=== PATIENT | female | born 1960 | race Caucasian/White ===

== ENCOUNTER → 2016-09-29 | Outpatient (CLI) | payer OTHER ==
[~2016-09-29] MED LIST: CPR500 PO; CRAN1TAB; ERGO1CAP41 PO; ESOM40GR PO; GLIM2TAB2 PO; IBUP-103 PO; LPR25 PO; METF500T PO; METH4PAK PO; MULTTAB5; RANI300T2 PO
[2016-09-29 19:20] LABS: URINE APPEARANCE TURBID (CLEAR); URINE BILIRUBIN NEG (NEG); URINE COLOR YELLOW; URINE EPITHELIAL CELL AUTO >30 /lpf (0-5); URINE NITRITE NEG (NEG); UROBILINOGEN NEG (NEG)
[2016-09-29 19:32] LABS: MANUAL MICROSCOPIC REQUIRED? NO; REVIEW REQ? YES
== END | disposition home or self-care (01) ==
LOC: C.LABSPEC 16:59
PROVIDERS: ATTEND Family Medicine
DX: R30.0 Dysuria (principal); R10.9 Unspecified abdominal pain

== ENCOUNTER → 2016-10-05 | Outpatient (CLI) | payer OTHER ==
--- NOTE | 2016-10-05 12:54 | DIAGNOSTIC IMAGING REPORT ---
RENAL ULTRASOUND HISTORY: R30.0 [id number] COMPARISON: Abdomen and pelvis CT 07/20/2014. FINDINGS: Right kidney: 13.2 cm. No hydronephrosis. Normal corticomedullary differentiation and cortical thickness. There is a 9 mm cyst at the interpolar region. There is a duplicated collecting system. Left kidney: 10.5 cm. No hydronephrosis. Normal corticomedullary differentiation and cortical thickness. There is 9 mm stone within the lower pole of the left kidney. Bladder: No bladder wall thickening. Hepatic steatosis. IMPRESSION: 1. No hydronephrosis. 2. Left-sided nephrolithiasis. No right renal calculi. 3. Duplicated right renal collecting system. 4. Hepatic steatosis. Electronically signed by: Lencho Modi M.D. 10/05/2016 12:52 PM Dictated Date/Time: 10/05/2016 12:47 PM
== END | disposition home or self-care (01) ==
LOC: C.ULTR 11:50
PROVIDERS: ATTEND Family Medicine
DX: R30.0 Dysuria (principal); R31.9 Hematuria, unspecified; N20.0 Calculus of kidney; K76.0 Fatty (change of) liver, not elsewhere classified

== ENCOUNTER → 2016-10-20 | Outpatient (CLI) | payer OTHER ==
[2016-10-20 13:23] LABS: ESTIMATED AVERAGE GLUCOSE 180 mg/dl; HA1C FLAG Normal (Normal)
[2016-10-20 13:52] LABS: CHOLESTEROL/HDL RATIO 3.5
[2016-10-20 14:23] LABS: BLOOD UREA NITROGEN 28 mg/dl (7-18); BUN/CREATININE RATIO 40.1 (10-20); CALCIUM 9.5 mg/dl (8.5-10.1); CARBON DIOXIDE 24 mmol/L (21-32); CHLORIDE 104 mmol/L (98-107); CREATININE 0.71 mg/dl (0.60-1.20); GLUCOSE 191 mg/dl (70-99); SODIUM 139 mmol/L (136-145)
== END | disposition home or self-care (01) ==
LOC: C.LABPBG 09:56
PROVIDERS: ATTEND Family Medicine
DX: Z11.59 Encounter for screening for other viral diseases (principal); E11.65 Type 2 diabetes mellitus with hyperglycemia

== ENCOUNTER 2016-12-07 11:06 | Emergency (ER) | payer OTHER ==
[~2016-12-07] VITALS: Ht 167.6 cm; Wt 99.4 kg
[~2016-12-07 11:06] MED LIST changes: -CRAN1TAB; -GLIM2TAB2 PO; -MULTTAB5
[2016-12-07 11:12] VITALS: TEMP 37.4; Ht 167.6 cm; Wt 99.4 kg
[2016-12-07 12:34] LABS: BASO % 0.4 %; BASO ABS # 0.04 K/uL (0-0.2); COMPLETE YES; EOS % 1.4 %; HEMATOCRIT 43.9 % (37-47); IG% 0.2 %; LYMPH ABS # 2.29 K/uL (1.2-3.4); MEAN CELL VOLUME 88.7 fL (80-100); MEAN CORPUSCULAR HEMOGLOBIN 29.7 pg (25-34); MEAN CORPUSCULAR HGB CONC 33.5 g/dl (32-36); MEAN PLATELET VOLUME 11.1 fL (7.4-10.4); MONO % 9.1 %; NEUT % 65.9 %; PLATELET COUNT 323 K/uL (130-400); RED BLOOD COUNT 4.95 M/uL (4.2-5.4); WHITE BLOOD COUNT 9.95 K/uL (4.8-10.8)
[2016-12-07] MEDS ORDERED: GLIM2TAB2 PO (12:57)
[2016-12-07] MEDS ORDERED: MULTTAB5 (12:57)
[2016-12-07] MEDS ORDERED: CRAN1TAB (12:57)
[2016-12-07 13:00] LABS: ALT/SGPT 26 U/L (12-78); AST/SGOT 11 U/L (15-37); BLOOD UREA NITROGEN 21 mg/dl (7-18); BUN/CREATININE RATIO 25.7 (10-20); CALCIUM 9.3 mg/dl (8.5-10.1); CARBON DIOXIDE 26 mmol/L (21-32); CHLORIDE 106 mmol/L (98-107); GLUCOSE 218 mg/dl (70-99); POTASSIUM 3.9 mmol/L (3.5-5.1); SODIUM 141 mmol/L (136-145)
[2016-12-07 13:02] LABS: ALB/GLOB RATIO 1.1 (0.9-2); ALKALINE PHOSPHATASE 111 U/L (45-117)
--- NOTE | 2016-12-07 13:40 | DIAGNOSTIC IMAGING REPORT ---
CHEST ONE VIEW PORTABLE CLINICAL HISTORY: Chest pain. COMPARISON STUDY: No previous studies for comparison. FINDINGS: Lung volumes are normal. There is no pneumothorax or pleural effusion. Cardiac size is normal. Mediastinal contours are normal. There is no evidence of pulmonary edema. IMPRESSION: No acute cardiopulmonary findings. Electronically signed by: Geo Walsh M.D. 12/07/2016 1:39 PM Dictated Date/Time: 12/07/2016 1:39 PM
--- NOTE | 2016-12-07 15:40 | EMERGENCY ROOM VISIT NOTE ---
ED Visit Note First contact with patient: 12:20 I have personally seen and evaluated the patient with the physician staff assistant. I agree with the diagnostic/management decisions and have personally been involved in these decisions and agree with the diagnosis.
[2016-12-07 15:43] VITALS: BP 124/88; PULSE 78; O2SAT 95
--- NOTE | 2016-12-07 17:23 | EMERGENCY ROOM VISIT NOTE ---
History First contact with patient: 12:20 Chief Complaint: ILLNESS Stated Complaint: CHEST PAIN History of Present Illness The patient is a 56 year old female who presents to the Emergency Room with complaints of abdominal pain, chest pain, shortness of breath and discomfort in bilateral shoulders. The patient reports that she has had worsening symptoms over the past week with shortness of breath over the past 3 days. The patient believes that some of her symptoms could be secondary to a diabetic medication that her family doctor prescribed. She does not know the name of it, but believes it is similar to glipizide. She continues with her metformin. The patient denies any recent upper respiratory infections. She denies any cough, headache, neck pain, fevers or chills. The patient denies any history of heart disease or lung disease. The patient does have a significant history of pelvic infection approximately 5 years ago secondary to contact dermatitis. She required extensive debridement at that time. She denies history of gallbladder disease, hepatitis or pancreatitis. The patient currently rates her discomfort a 5 out of 10. Review of Systems HEENT: Denies dizziness, visual problems, hearing loss, tinnitus. Denies difficulty swallowing or oral lesions. PULMONARY: Denies cough, sputum production or hemoptysis. CARDIOVASCULAR: Denies palpitations, dyspnea on exertion, orthopnea or peripheral edema. Otherwise see history of present illness. GASTROINTESTINAL: Denies diarrhea, constipation, nausea or vomiting. GENITOURINARY: Denies dysuria, frequency, urgency or nocturia. NEUROLOGIC: Denies history of epilepsy, CVA, TIA or chronic headaches. MUSCULOSKELETAL: Denies history of joint tenderness/swelling. SKIN: Denies rashes or lesions. PSYCHIATRIC: Denies history of depression or mental illness. ENDOCRINE: History of diabetes. Denies thyroid disorders. Past Medical/Surgical History Medical Problems: (1) Calculus Of Kidney (2) Diab Liliya Wo Compl, Type Ii Or Unspec Type, Uncontrolled (3) Diverticulosis Colon (W/O Ment Of Hemorrhage) (4) Septicemia Nos Family History FH: diabetes mellitus FH: heart disease FH: hypertension FH: kidney disease Social History Smoking Status: Former Smoker Alcohol Use: none Marital Status: Housing Status: lives with family Occupation Status: unemployed Current/Historical Medications Scheduled Glimepiride (Glimepiride), 1 TAB PO DAILY Ibuprofen Tab (Advil), 200-600 MG PO Q4-6HR PRN Metformin Hcl (Glucophage), 500 MG PO DAILY Metoprolol Tartrate (Lopressor), 25 MG PO BID Miscellaneous Medications Cranberry (Vaccinium Macrocarp (Cranberry) Multiple Vitamins W/ Minerals (Centrum) Allergies Coded Allergies: Sulfa Drugs (Verified Allergy, Severe, hives, 12/07/16) Physical Exam Vital Signs Date Time Temp Pulse Resp B/P Pulse Ox O2 Delivery O2 Flow Rate FiO2 12/07/16 15:43 78 18 124/88 95 Room Air 12/07/16 14:13 132/74 12/07/16 13:05 128/68 12/07/16 11:12 37.4 86 18 135/83 94 Room Air Physical Exam CONSTITUTIONAL: Obese female, alert and oriented X 3 with positive affect. She does not appear in any acute distress. HEENT: Normocephalic, atraumatic. Pupils equal, round and reactive. No scleral icterus or conjunctival injection/pallor. NECK: Full active range of motion without discomfort. No JVD or carotid bruits. RESPIRATORY: Clear to auscultation bilaterally with no wheezing, crackles, rhonchi or stridor. CARDIOVASCULAR: Regular rate and rhythm with no murmurs, rubs or gallops. GASTROINTESTINAL: Bowel sounds present in all quadrants. Patient has mild epigastric and right upper quadrant tenderness to palpation. Negative Rodriguez sign. No abdominal rigidity, guarding or rebound. MUSCULOSKELETAL: Full range of motion of all joints without discomfort. INTEGUMENTARY: No rash or other significant dermatologic conditions noted. HEMATOLOGIC: No ecchymosis or petechiae. NEUROLOGIC: No focal neurologic deficits noted. Medical Decision & Procedures ER Provider Diagnostic Interpretation: My interpretation of an ECG shows a normal sinus rhythm of [address] elevation. A left anterior fascicular block is noted. My interpretation of a portable chest x-ray does not show any consolidations or pneumothorax. Radiologist report is as follows: CHEST ONE VIEW PORTABLE CLINICAL HISTORY: Chest pain. COMPARISON STUDY: No previous studies for comparison. FINDINGS: Lung volumes are normal. There is no pneumothorax or pleural effusion. Cardiac size is normal. Mediastinal contours are normal. There is no evidence of pulmonary edema. IMPRESSION: No acute cardiopulmonary findings. Laboratory Results 12/07/16 12:20 Red Blood Count 4.95, Mean Corpuscular Volume 88.7, Mean Corpuscular Hemoglobin 29.7, Mean Corpuscular Hemoglobin Concent 33.5, Mean Platelet Volume 11.1, Neutrophils (%) (Auto) 65.9, Lymphocytes (%) (Auto) 23.0, Monocytes (%) (Auto) 9.1, Eosinophils (%) (Auto) 1.4, Basophils (%) (Auto) 0.4, Neutrophils # (Auto) 6.55, Lymphocytes # (Auto) 2.29, Monocytes # (Auto) 0.91, Eosinophils # (Auto) 0.14, Basophils # (Auto) 0.04 12/07/16 12:20 Test 12/07/16 12:19 12/07/16 12:20 Bedside Glucose 199 mg/dl (70-90) White Blood Count 9.95 K/uL (4.8-10.8) Red Blood Count 4.95 M/uL (4.2-5.4) Hemoglobin 14.7 g/dL (12.0-16.0) Hematocrit 43.9 % (37-47) Mean Corpuscular Volume 88.7 fL (80-100) Mean Corpuscular Hemoglobin 29.7 pg (25-34) Mean Corpuscular Hemoglobin Concent 33.5 g/dl (32-36) Platelet Count 323 K/uL (130-400) Mean Platelet Volume 11.1 fL (7.4-10.4) Neutrophils (%) (Auto) 65.9 % Lymphocytes (%) (Auto) 23.0 % Monocytes (%) (Auto) 9.1 % Eosinophils (%) (Auto) 1.4 % Basophils (%) (Auto) 0.4 % Neutrophils # (Auto) 6.55 K/uL (1.4-6.5) Lymphocytes # (Auto) 2.29 K/uL (1.2-3.4) Monocytes # (Auto) 0.91 K/uL (0.11-0.59) Eosinophils # (Auto) 0.14 K/uL (0-0.5) Basophils # (Auto) 0.04 K/uL (0-0.2) RDW Standard Deviation 46.0 fL (36.4-46.3) RDW Coefficient of Variation 14.2 % (11.5-14.5) Immature Granulocyte % (Auto) 0.2 % Immature Granulocyte # (Auto) 0.02 K/uL (0.00-0.02) D-Dimer 350 ug/L FEU (0-500) Anion Gap 9.0 mmol/L (3-11) Est Creatinine Clear Calc Drug Dose 91.1 ml/min Estimated GFR () 94.2 Estimated GFR (Non- 81.3 BUN/Creatinine Ratio 25.7 (10-20) Calcium Level 9.3 mg/dl (8.5-10.1) Total Bilirubin 0.3 mg/dl (0.2-1) Direct Bilirubin < 0.1 mg/dl (0-0.2) Aspartate Amino Transf (AST/SGOT) 11 U/L (15-37) Alanine Aminotransferase (ALT/SGPT) 26 U/L (12-78) Alkaline Phosphatase 111 U/L (45-117) Total Creatine Kinase 37 U/L (26-192) Troponin I < 0.015 ng/ml (0-0.045) Total Protein 7.4 gm/dl (6.4-8.2) Albumin 3.8 gm/dl (3.4-5.0) Globulin 3.6 gm/dl (2.5-4.0) Albumin/Globulin Ratio 1.1 (0.9-2) Lipase 155 U/L (73-393) The above labs were reviewed. Random glucose is 218. BUN 21 with a normal creatinine of 0.8. CBC and LFTs are normal. Troponin and d-dimer are normal. ED Course Patient history and physical exam were performed. Nurse's notes were reviewed. Vital signs were reviewed and were normal. O2 saturation was 94% on room air in triage, but was 97% on my initial exam. IV access was established and labs were drawn. The patient refused any analgesics. ECG and chest x-ray were normal. Review of labs shows a normal d-dimer and troponin. Remaining labs are also normal. The case was further discussed with Dr. Vásquez, ED attending physician, who evaluated the patient and does not feel that any additional workup is warranted , and suggested outpatient follow-up with PCP. The patient was advised of her normal findings. She was encouraged to call her family doctor's office for further reevaluation. I do not know if her current diabetes medication is causing the symptoms, although I don't think it's likely. She was instructed to return for any progressively worsening symptoms. The patient was happy with plan of care, and denied any significant symptoms at the time of discharge. Medical Decision She presents to the emergency department with multiple complaints that she attributes to possible allergic reaction to a new diabetic medication that she started. Her workup today is not suggestive of myocardial infarction, pneumonia , pneumothorax or pulmonary embolus. The patient is afebrile and has no leukocytosis. At this point, I feel that the patient is stable for outpatient management. She was given instructions to return for any worsening symptoms. Impression Primary Impression: Shortness of breath Additional Impressions: Chest pain, non-cardiac Diabetes Departure Information Referrals Antoinette Farmer DO (PCP) Patient Instructions My [facility] Problem Qualifiers
== END 2016-12-07 15:56 | disposition home or self-care (01) ==
LOC: C.EDB 11:08 → C.EDC 15:56
DX: R06.02 Shortness of breath (principal); R07.89 Other chest pain; E11.9 Type 2 diabetes mellitus without complications; R10.9 Unspecified abdominal pain; Z87.442 Personal history of urinary calculi; Z79.899 Other long term (current) drug therapy; E66.9 Obesity, unspecified; Z68.35 Body mass index [BMI] 35.0-35.9, adult; Z83.3 Family history of diabetes mellitus; Z82.49 Family history of ischemic heart disease and other diseases of the circulatory system; Z87.891 Personal history of nicotine dependence

== ENCOUNTER → 2017-01-01 | Outpatient (CLI) | payer OTHER ==
[~2017-01-01] MED LIST changes: -CPR500 PO; +CRAN1TAB; -ERGO1CAP41 PO; -ESOM40GR PO; +GLIM2TAB2 PO; -METH4PAK PO; +MULTTAB5; -RANI300T2 PO
[2017-01-01 18:11] LABS: URINE APPEARANCE CLEAR (CLEAR); URINE BILIRUBIN NEG (NEG); URINE COLOR YELLOW; URINE NITRITE NEG (NEG); URINE PH 5.5 (4.5-7.5); UROBILINOGEN NEG (NEG)
[2017-01-01 18:19] LABS: MANUAL MICROSCOPIC REQUIRED? NO; REVIEW REQ? NO
== END | disposition home or self-care (01) ==
LOC: C.LABPBG 14:39
PROVIDERS: ATTEND Family Medicine
DX: R30.0 Dysuria (principal)

== ENCOUNTER → 2017-03-07 | Outpatient (CLI) | payer OTHER ==
[2017-03-07 13:35] LABS: BLOOD UREA NITROGEN 29 mg/dl (7-18); BUN/CREATININE RATIO 40.6 (10-20); CARBON DIOXIDE 24 mmol/L (21-32); CHLORIDE 109 mmol/L (98-107); CREATININE 0.71 mg/dl (0.60-1.20); GLUCOSE 227 mg/dl (70-99); POTASSIUM 4.3 mmol/L (3.5-5.1); SODIUM 142 mmol/L (136-145)
[2017-03-07 13:46] LABS: CHOLESTEROL 210 mg/dl (0-200); HDL CHOLESTEROL 53 mg/dl; LDL CHOLESTEROL CALCULATED 129 mg/dl; TRIGLYCERIDES 141 mg/dl (0-150); VERY LOW DENSITY LIPOPROT CALC 28 mg/dl
[2017-03-07 14:38] LABS: ESTIMATED AVERAGE GLUCOSE 232 mg/dl; HA1C FLAG Normal (Normal)
[2017-03-07 17:49] LABS: URINE APPEARANCE TURBID (CLEAR); URINE BILIRUBIN NEG (NEG); URINE COLOR YELLOW; URINE EPITHELIAL CELL AUTO 20-30 /lpf (0-5); URINE NITRITE NEG (NEG); URINE SPECIFIC GRAVITY 1.024 (1.000-1.030); UROBILINOGEN NEG (NEG); ZZUR CULT IF INDIC CLEAN CATCH NO
[2017-03-07 17:51] LABS: MANUAL MICROSCOPIC REQUIRED? NO; REVIEW REQ? NO
[2017-03-07 18:23] LABS: RATIO 13.2 mcg/mg (0-30.0)
== END | disposition home or self-care (01) ==
LOC: C.LABPBG 09:55
PROVIDERS: ATTEND Nurse Practitioner Family
DX: I10 Essential (primary) hypertension (principal); E78.5 Hyperlipidemia, unspecified; E11.65 Type 2 diabetes mellitus with hyperglycemia; R35.0 Frequency of micturition

== ENCOUNTER → 2017-04-18 | Outpatient (CLI) | payer OTHER ==
[2017-04-18 12:28] LABS: BLOOD UREA NITROGEN 21 mg/dl (7-18); BUN/CREATININE RATIO 34.8 (10-20); CALCIUM 9.2 mg/dl (8.5-10.1); CARBON DIOXIDE 26 mmol/L (21-32); CHLORIDE 109 mmol/L (98-107); CREATININE 0.61 mg/dl (0.60-1.20); GLUCOSE 186 mg/dl (70-99); POTASSIUM 4.2 mmol/L (3.5-5.1); SODIUM 141 mmol/L (136-145)
[2017-04-18 12:49] LABS: ESTIMATED AVERAGE GLUCOSE 200 mg/dl; HA1C FLAG Normal (Normal)
== END | disposition home or self-care (01) ==
LOC: C.LABPBG 10:33
PROVIDERS: ATTEND Nurse Practitioner Family
DX: E11.65 Type 2 diabetes mellitus with hyperglycemia (principal)

== ENCOUNTER → 2017-11-16 | Outpatient (CLI) | payer OTHER ==
[2017-11-16 13:05] LABS: HEMOGLOBIN A1C 8.1 % (4.5-5.6)
[2017-11-16 17:14] LABS: BLOOD UREA NITROGEN 22 mg/dl (7-18); CALCIUM 9.1 mg/dl (8.5-10.1); CARBON DIOXIDE 29 mmol/L (21-32); CREATININE 0.63 mg/dl (0.60-1.20); GLUCOSE 169 mg/dl (70-99); POTASSIUM 3.9 mmol/L (3.5-5.1); SODIUM 138 mmol/L (136-145)
== END | disposition home or self-care (01) ==
LOC: C.LABPBG 10:25
PROVIDERS: ATTEND Family Medicine
DX: R39.89 Other symptoms and signs involving the genitourinary system (principal); E11.65 Type 2 diabetes mellitus with hyperglycemia